=== PATIENT | male | born 2000 | race Caucasian/White ===

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

== ENCOUNTER 2019-01-05 17:50 | Emergency (ER) | payer BC ==
[2019-01-05 18:02] VITALS: BP 142/73
--- NOTE | 2019-01-05 18:57 | EKG REPORT ---
SEVERITY:- NORMAL ECG - SINUS RHYTHM : Confirmed by: Gwyn Mansfield MD 05-Jan-2019 18:57:12
--- NOTE | 2019-01-05 19:23 | ER Document Report ---
ED Medical Screen (RME) - General Chief Complaint: Palpitations Stated Complaint: PALPITATIONS Time Seen by Provider: 01/05/19 19:15 Primary Care Provider: LAY CABRERA MD [Primary Care Provider] - Follow up as needed Mode of Arrival: Ambulatory Information source: Patient Notes: Patient is a 18-year-old male with past medical history of asthma presenting to the emergency department with 24-hour history of chest pain. Patient reports pain is located just below his collarbone on the left side of his chest. He states it feels like a sharp stabbing pain. He denies any nausea, vomiting or diarrhea. He does report mild associated shortness of breath. He also reports feeling like his heart is fluttering. He denies the use of any caffeine or stimulants. Exam: Patient alert, oriented with no acute distress noted. Vital signs were reviewed and are within normal limits. Heart sounds S1-S2 present with no ectopy noted. Lung sounds are clear and equal bilaterally. I have greeted and performed a rapid initial assessment of this patient. A comprehensive ED assessment and evaluation of the patient, analysis of test results and completion of the medical decision making process will be conducted by additional ED providers. I have specifically instructed the patient or family members with the patient to immediately return to any nursing staff should anything change in the patient's condition or with their chief complaint. This medical record was dictated with voice recognizing software. There may be grammatical, syntax errors that are unintended. TRAVEL OUTSIDE OF THE [place] IN LAST 30 DAYS: No - Related Data Allergies/Adverse Reactions: No Known Allergies Allergy (Verified 01/05/19 17:51) Past Medical History - Social History Frequency of alcohol use: None Drug Abuse: Marijuana Pulmonary Medical History: Reports: Hx Asthma Renal/ Medical History: Denies: Hx Peritoneal Dialysis Musculoskeltal Medical History: Reports Hx Musculoskeletal Trauma Traumatic Medical History: Reports: Hx Fractures - left middle finger Past Surgical History: Reports: Hx Appendectomy - Immunizations Immunizations up to date: Yes Hx Diphtheria, Pertussis, Tetanus Vaccination: Yes Physical Exam - Vital signs Vitals: Temp Pulse Resp BP Pulse Ox 98.4 F 68 20 142/73 H 98 01/05/19 18:00 01/05/19 18:00 01/05/19 18:00 01/05/19 18:00 01/05/19 18:00 Course - Vital Signs Vital signs: Temp Pulse Resp BP Pulse Ox 98.4 F 68 20 142/73 H 98 01/05/19 18:00 01/05/19 18:00 01/05/19 18:00 01/05/19 18:00 01/05/19 18:00 Doctor's Discharge - Discharge Referrals: LAY CABRERA MD [Primary Care Provider] - Follow up as needed
--- NOTE | 2019-01-05 19:56 | RADIOLOGY REPORT (SQ) ---
EXAM DESCRIPTION: CHEST SINGLE VIEW COMPLETED DATE/TIME: 01/05/2019 7:42 pm REASON FOR STUDY: chest pain COMPARISON: 11/21/2017 EXAM PARAMETERS: NUMBER OF VIEWS: One view. TECHNIQUE: Single frontal radiographic view of the chest acquired. RADIATION DOSE: NA LIMITATIONS: None. FINDINGS: LUNGS AND PLEURA: No opacities, masses or pneumothorax. No pleural effusion. MEDIASTINUM AND HILAR STRUCTURES: No masses. Contour normal. HEART AND VASCULAR STRUCTURES: Heart normal in size. Normal vasculature. BONES: No acute findings. HARDWARE: None in the chest. OTHER: No other significant finding. IMPRESSION: NO ACUTE RADIOGRAPHIC FINDING IN THE CHEST. TECHNICAL DOCUMENTATION: JOB ID: [id number] [employer]- All Rights Reserved Reading location - IP/workstation name: [email or web address]
[2019-01-05 20:21] LABS: ABSOLUTE BASOPHILS # (AUTO) 0.1 10^3/uL (0.0-0.2); ABSOLUTE EOSINOPHILS # (AUTO) 0.2 10^3/uL (0.0-0.6); ABSOLUTE LYMPHOCYTES (AUTO) 2.5 10^3/uL (0.5-4.7); ABSOLUTE MONOCYTES (AUTO) 0.9 10^3/uL (0.1-1.4); ABSOLUTE NEUT (AUTO) 7.2 10^3/uL (1.7-8.2); BASOPHILS % (AUTO) 0.9 % (0-2); EOSINOPHILS % (AUTO) 2.1 % (0-6); HEMATOCRIT 49.7 % (37.9-51.0); HEMOGLOBIN 16.8 g/dL (13.5-17.0); MEAN CORPUSCULAR HGB CONC 33.8 g/dL (32.0-36.0); MEAN CORPUSCULAR VOLUME 92 fl (80-97); MONOCYTES % (AUTO) 8.1 % (3-13); PLATELET COUNT 248 10^3/uL (150-450); RED CELL DISTRIBUTION WIDTH 13.4 % (11.5-14.0); SEGMENTED NEUTROPHILS % (AUTO) 65.9 % (42-78); TOTAL CELLS COUNTED % (AUTO) 100 %; WHITE BLOOD COUNT 10.9 10^3/uL (4.0-10.5)
[2019-01-05 20:46] LABS: ALANINE AMINOTRANSFERASE 27 U/L (10-40); ALBUMIN 5.2 g/dL (3.7-5.6); ALKALINE PHOSPHATASE 58 U/L (65-260); ANION GAP 12 (5-19); ASPARTATE AMINO TRANSFERASE 26 U/L (10-45); BILIRUBIN,DIRECT 0.3 mg/dL (0.0-0.4); BILIRUBIN,TOTAL 0.6 mg/dL (0.2-1.3); BLOOD UREA NITROGEN 9 mg/dL (7-20); CALCIUM 10.2 mg/dL (8.4-10.2); CARBON DIOXIDE 26 mmol/L (22-30); CHLORIDE 104 mmol/L (98-107); GLUCOSE 103 mg/dL (75-110); POTASSIUM 4.4 mmol/L (3.6-5.0); TOTAL PROTEIN 8.4 g/dL (6.3-8.2)
== END 2019-01-06 02:12 | disposition left against medical advice (07) ==
LOC: ER 17:50
DX: R00.2 Palpitations (principal)
CPT/HCPCS: 36415; 71045; 80053; 84484; 85025; 93005; 93010; 99281

== ENCOUNTER 2019-02-03 21:20 | Emergency (ER) | payer BC ==
[2019-02-03 21:25] VITALS: BP 148/86
== END 2019-02-04 00:05 | disposition left against medical advice (07) ==
LOC: ER 21:20
DX: Z53.21 Procedure and treatment not carried out due to patient leaving prior to being seen by health care provider (principal)

== ENCOUNTER 2019-04-24 05:52 | Emergency (ER) | payer BC ==
--- NOTE | 2019-04-24 06:31 | ER Document Report ---
ED General <ALBER HOLT - Last Filed: 04/24/19 13:03> - General TRAVEL OUTSIDE OF THE [place] IN LAST 30 DAYS: No <EMILIO TONG - Last Filed: 04/24/19 13:40> - General Chief Complaint: Suicidal Ideation Stated Complaint: SUICIDAL IDEATION Time Seen by Provider: 04/24/19 06:31 Primary Care Provider: [facility] [Outside] - Follow up in 3-5 days [facility] [Outside] - Follow up as needed ANNMARIE HOWARD PA-C [Primary Care Provider] - Follow up as needed - Related Data Allergies/Adverse Reactions: No Known Allergies Allergy (Verified 01/05/19 17:51) Past Medical History - Social History Smoking Status: Current Every Day Smoker Drug Abuse: Marijuana Family History: Arthritis, CAD, Hyperlipidemia, Hypertension Patient has suicidal ideation: Yes Patient has homicidal ideation: No - Past Medical History Cardiac Medical History: Pulmonary Medical History: Reports: Hx Asthma Endocrine Medical History: Renal/ Medical History: Denies: Hx Peritoneal Dialysis Musculoskeletal Medical History: Reports Hx Musculoskeletal Trauma Traumatic Medical History: Reports: Hx Fractures - left middle finger Past Surgical History: Reports: Hx Appendectomy - Immunizations Immunizations up to date: Yes Hx Diphtheria, Pertussis, Tetanus Vaccination: Yes <EMILIO TONG - Last Filed: 04/24/19 13:40> Physical Exam - Vital signs Vitals: Temp Pulse Resp BP Pulse Ox 97.2 F 92 H 20 165/93 H 100 04/24/19 05:57 04/24/19 05:57 04/24/19 05:57 04/24/19 05:57 04/24/19 05:57 Course - Laboratory Result Diagrams: 04/24/19 07:25 04/24/19 07:25 <ALBER HOLT - Last Filed: 04/24/19 13:03> - Laboratory Result Diagrams: 04/24/19 07:25 04/24/19 07:25 <EMILIO TONG - Last Filed: 04/24/19 13:40> - Vital Signs Vital signs: Temp Pulse Resp BP Pulse Ox 97.2 F 92 H 20 165/93 H 100 04/24/19 05:57 04/24/19 05:57 04/24/19 05:57 04/24/19 05:57 04/24/19 05:57 - Laboratory Laboratory results interpreted by me: 04/24/19 04/24/19 04/24/19 06:36 07:25 07:25 Hgb 17.4 H Chloride 108 H Alkaline Phosphatase 50 L Urine Blood SMALL H Salicylates < 1.0 L Acetaminophen < 10 L Discharge <KACY HOLTIME - Last Filed: 04/24/19 13:03> <EMILIO TONG - Last Filed: 04/24/19 13:40> - Discharge Clinical Impression: Major depressive disorder Qualifiers: Major depression recurrence: unspecified whether recurrent Active/Remission status: remission status unspecified Qualified Code(s): F32.9 - Major depressive disorder, single episode, unspecified Clinical Impression: (Ruled Out): Bipolar II disorder Condition: Stable Disposition: HOME, SELF-CARE Additional Instructions: You have been evaluated both medical and behavioral teams and been deemed appropriate for discharge. You provided local resource list of area providers including mobile crisis contact information. Please contact your chosen outpatient mental health provider for therapeutic services such as CBT or DBT. DEPRESSION: Your evaluation reveals that you have mental depression. While symptoms may be vague, they often include disturbance of sleep, fatigue, loss of appetite, and general loss of interest in life. While depression may be a side effect of drugs, or a reaction to a major change in your life, many cases have no known cause. If depression is acute, and related to a major loss in your life, you can expect it to clear completely with time. If you have been depressed a long time, are prone to repeated bouts of depression or low mood, or have been thinking of suicide, get help. Depression can be treated with anti-depressant medication and counselling. Long-term depression will often take a few weeks to clear, even with appropriate medication. Follow-up care is important. SUICIDAL IDEATION: Suicidal ideation is a common medical term for thoughts about suicide, whi ch may be as detailed as a formulated plan, without the suicidal act itself. Although most people who undergo suicidal ideation do not commit suicide, some go on to make suicide attempts. The range of suicidal ideation varies greatly from fleeting to detailed planning, role playing, and unsuccessful attempts. While thoughts about suicide are common, most people do not carry out serious actions to commit suicide. Based upon your evaluation and discussion with you, we do not believe you are currently at risk to act upon your thoughts of suicide. You have agreed to return to the Emergency Department, at any time, if you feel inclined to act upon your suicidal thoughts. FOLLOW-UP CARE: If you have been referred to a physician for follow-up care, call the physicians office for an appointment as you were instructed or within the next two days. If you experience worsening or a significant change in your symptoms, notify the physician immediately or return to the Emergency Department at any time for re-evaluation. Referrals: ANNMARIE HOWARD PA-C [Primary Care Provider] - Follow up as needed [facility] [Outside] - Follow up as needed [facility] [Outside] - Follow up in 3-5 days
[2019-04-24 07:38] LABS: ABSOLUTE BASOPHILS # (AUTO) 0.1 10^3/uL (0.0-0.2); ABSOLUTE EOSINOPHILS # (AUTO) 0.5 10^3/uL (0.0-0.6); ABSOLUTE LYMPHOCYTES (AUTO) 2.3 10^3/uL (0.5-4.7); ABSOLUTE MONOCYTES (AUTO) 0.9 10^3/uL (0.1-1.4); ABSOLUTE NEUT (AUTO) 5.5 10^3/uL (1.7-8.2); BASOPHILS % (AUTO) 1.3 % (0-2); HEMATOCRIT 50.3 % (37.9-51.0); HEMOGLOBIN 17.4 g/dL (13.5-17.0); LYMPHOCYTES % (AUTO) 24.9 % (13-45); MEAN CORPUSCULAR HEMOGLOBIN 31.9 pg (27.0-33.4); MEAN CORPUSCULAR HGB CONC 34.6 g/dL (32.0-36.0); MEAN CORPUSCULAR VOLUME 92 fl (80-97); MONOCYTES % (AUTO) 9.9 % (3-13); PLATELET COUNT 234 10^3/uL (150-450); RED BLOOD COUNT 5.46 10^6/uL (4.35-5.55); RED CELL DISTRIBUTION WIDTH 12.9 % (11.5-14.0); SEGMENTED NEUTROPHILS % (AUTO) 58.9 % (42-78); TOTAL CELLS COUNTED % (AUTO) 100 %; WHITE BLOOD COUNT 9.3 10^3/uL (4.0-10.5)
[2019-04-24 07:52] LABS: APPEARANCE,URINE CLEAR; BILIRUBIN,URINE NEGATIVE (NEGATIVE); COLOR,URINE YELLOW; GLUCOSE, URINE NEGATIVE (NEGATIVE); KETONES,URINE NEGATIVE (NEGATIVE); LEUKOCYTE ESTERASE,URINE NEGATIVE (NEGATIVE); NITRITE,URINE NEGATIVE (NEGATIVE); PROTEIN,URINE NEGATIVE (NEGATIVE); URINE SPECIFIC GRAVITY 1.018; UROBILINOGEN,URINE NEGATIVE mg/dL (<2.0)
[2019-04-24 07:55] LABS: ADD MANUAL MICROSCOPIC YES
[2019-04-24 08:01] LABS: ALBUMIN 4.8 g/dL (3.7-5.6); ALKALINE PHOSPHATASE 50 U/L (65-260); ANION GAP 11 (5-19); ASPARTATE AMINO TRANSFERASE 24 U/L (10-45); BILIRUBIN,DIRECT 0.2 mg/dL (0.0-0.4); BILIRUBIN,TOTAL 0.4 mg/dL (0.2-1.3); BLOOD UREA NITROGEN 8 mg/dL (7-20); CALCIUM 9.5 mg/dL (8.4-10.2); CARBON DIOXIDE 25 mmol/L (22-30); CHLORIDE 108 mmol/L (98-107); GLUCOSE 95 mg/dL (75-110); POTASSIUM 4.1 mmol/L (3.6-5.0); TOTAL PROTEIN 7.6 g/dL (6.3-8.2)
[2019-04-24 08:06] LABS: ACETAMINOPHEN < 10 ug/mL (10-30); ALCOHOL < 10 mg/dL (NONE DETECTED); SALICYLATE < 1.0 mg/dL (2.0-20.0)
[2019-04-24 08:10] LABS: URINE AMPHETAMINES SCREEN NEGATIVE; URINE BARBITURATES SCREEN NEGATIVE; URINE BENZODIAZEPINES SCREEN NEGATIVE; URINE COCAINE SCREEN NEGATIVE; URINE MARIJUANA (THC) SCREEN UNCONFIRMED POSITIVE; URINE METHADONE SCREEN NEGATIVE; URINE PHENCYCLIDINE SCREEN NEGATIVE
--- NOTE | 2019-04-24 13:18 | PSYCHOLOGICAL NOTE ---
Psych Note - Psych Note Date seen by psych provider: 04/24/19 Time seen by psych provider: 07:35 Psych Note: Reason for Consult: Suicidal ideation Pt reports he was at home drinking a few beers with his brother and father when he suddenly "felt sad, went inside and started to cry." Pt reports SI at that time, attempted to take his entire bottle of prescription Vistaril, but changed his mind and spit them out. Pt denies hx of suicide attempts previously, stating "I've had thoughts of wanting to hurt myself or just having weird reactions to things. But tonfish is the first time I tried anything and went that far." Patient reports that he has had thoughts in the past of "what would happen" if he had harm himself however it always will "was abstract." Patient reports that last night was a normal night and can identify no triggers however he was drinking with family and after 2 beers reports going to his room and started crying. He states that he saw his pills sitting next to him on grabbed them and threw them in his mouth. He reports he immediately spit them out started crying more and came to [facility] for help. He states he texted his mother about what was happening and that he was coming to the hospital. He disclosed that he does have depressive thoughts with suicidal ideation that is typically passive in nature for months now that is on and off which he identifies is not seeming to be stress connected. He denies having any previous diagnosis however disclose that he does have a paternal grandmother who killed herself but does not know the details. Patient states that he hated school growing up however he went because the social aspect of it. He disclosed that he was "not disciplined and doing homework" however was a very good test taker and took many honors and AP classes. Patient reports that he did get into school and out of school suspensions frequently in high school. Patient states that he does smoke marijuana however rarely drinks. Patient reports that he does have significant issues with sleeping. Patient is alert and orientated to person, place, time and circumstance. Mood is euthymic with congruent affect. Patient denies current suicidal and homicidal ideation. Reports typically passive suicidal ideation (i.e. no plans means or intent) that comes and goes, with an experience event of suicidal gesture for the first time last night. Delusions are absent and behaviors congruent with an intact reality based presentation ie organized and linear thought process. Eye contact is well-maintained. Conversational speech is within normal rate, tone and prosody. Intellectual abilities appear to be within the average range. Attention and concentration are good. Insight, judgment, impulse control are fair. Major depressive disorder R/O bipolar 2 disorder No medication recommendations at this time Impression\\plan: Patient is cleared from acute psychiatric services. Patient presented to [facility] after impulsively putting prescription medications in his mouth and attempt to harm himself. Patient mainly spit them out and came to [facility] for assistance. Patient has family history suggesting probable major depressive disorder or bipolar. Patient reports he would like to attempt psychiatric treatment without medication management. Clinician provided psychoeducation on healthy lifestyle choices and successful therapeutic interventions for major depressive disorder and bipolar disorder. Patient's uncle joined at bedside per patient's request and agrees to be part of patient's plan of care i.e. no access to medications weapons and follow through with mental health recommendations. Patient was provided local resource list of area providers including mobile crisis contact information. Dr. Ga was consulted to care management of this patient; attending physician she does agreement with recommendations and disposition.
[2019-04-24 13:43] VITALS: BP 129/59
--- NOTE | 2019-04-24 21:38 | EKG REPORT ---
SEVERITY:- NORMAL ECG - SINUS RHYTHM : Confirmed by: Gwyn Mansfield MD 24-Apr-2019 21:37:00
== END 2019-04-24 13:50 | disposition home or self-care (01) ==
LOC: ER 05:52
DX: F32.9 Major depressive disorder, single episode, unspecified (principal); R45.851 Suicidal ideations; F17.200 Nicotine dependence, unspecified, uncomplicated
CPT/HCPCS: 36415; 80053; 80307; 81001; 85025; 93005; 93010; 99285

== ENCOUNTER 2020-01-02 14:11 | Emergency (ER) | payer BC ==
[2020-01-02 14:16] VITALS: BP 153/86
--- NOTE | 2020-01-02 14:36 | ER Document Report ---
ED Medical Screen (RME) - General Stated Complaint: FLANK PAIN Time Seen by Provider: 01/02/20 14:32 Primary Care Provider: ANNMARIE HOWARD PA-C [Primary Care Provider] - Follow up as needed Notes: HPI: 19-year-old male with 10 days of pain through the left lower back radiating around into the left flank region. States it hurts to move. Has had some diarrhea occasionally. No penis or testicular pain no darkening of his urine no blood in his urine. Has had occasional nausea no vomiting. PHYSICAL EXAMINATION: No direct tenderness in the CVA area left flank but mild tenderness to the left lower quadrant region on palpation I have greeted and performed a rapid initial assessment of this patient. A comprehensive ED assessment and evaluation of the patient, analysis of test results and completion of medical decision making process will be conducted by an additional ED providers. TRAVEL OUTSIDE OF THE [place] IN LAST 30 DAYS: No - Related Data Allergies/Adverse Reactions: No Known Allergies Allergy (Verified 01/02/20 14:31) Past Medical History - Past Medical History Cardiac Medical History: Pulmonary Medical History: Reports: Hx Asthma Endocrine Medical History: Renal/ Medical History: Denies: Hx Peritoneal Dialysis Musculoskeltal Medical History: Reports Hx Musculoskeletal Trauma Traumatic Medical History: Reports: Hx Fractures - left middle finger Past Surgical History: Reports: Hx Appendectomy - Immunizations Immunizations up to date: Yes Hx Diphtheria, Pertussis, Tetanus Vaccination: Yes Physical Exam - Vital signs Vitals: Pulse Resp BP Pulse Ox 75 18 153/86 H 99 01/02/20 14:14 01/02/20 14:14 01/02/20 14:14 01/02/20 14:14 Course - Vital Signs Vital signs: Temp Pulse Resp BP Pulse Ox 75 18 153/86 H 99 01/02/20 14:14 01/02/20 14:14 01/02/20 14:14 01/02/20 14:14 Doctor's Discharge - Discharge Referrals: ANNMARIE HOWARD PA-C [Primary Care Provider] - Follow up as needed
[2020-01-02 15:09] LABS: ABSOLUTE BASOPHILS # (AUTO) 0.1 10^3/uL (0.0-0.2); ABSOLUTE EOSINOPHILS # (AUTO) 0.5 10^3/uL (0.0-0.6); ABSOLUTE LYMPHOCYTES (AUTO) 2.3 10^3/uL (0.5-4.7); ABSOLUTE MONOCYTES (AUTO) 0.9 10^3/uL (0.1-1.4); ABSOLUTE NEUT (AUTO) 5.1 10^3/uL (1.7-8.2); BASOPHILS % (AUTO) 0.9 % (0-2); EOSINOPHILS % (AUTO) 5.4 % (0-6); HEMATOCRIT 51.8 % (37.9-51.0); HEMOGLOBIN 17.8 g/dL (13.5-17.0); LYMPHOCYTES % (AUTO) 26.4 % (13-45); MEAN CORPUSCULAR HGB CONC 34.4 g/dL (32.0-36.0); MEAN CORPUSCULAR VOLUME 93 fl (80-97); PLATELET COUNT 240 10^3/uL (150-450); RED BLOOD COUNT 5.57 10^6/uL (4.35-5.55); RED CELL DISTRIBUTION WIDTH 12.8 % (11.5-14.0); SEGMENTED NEUTROPHILS % (AUTO) 57.3 % (42-78); TOTAL CELLS COUNTED % (AUTO) 100 %; WHITE BLOOD COUNT 8.9 10^3/uL (4.0-10.5)
[2020-01-02 15:17] LABS: APPEARANCE,URINE SLIGHTLY-CLOUDY; BILIRUBIN,URINE NEGATIVE (NEGATIVE); COLOR,URINE YELLOW; GLUCOSE, URINE NEGATIVE (NEGATIVE); KETONES,URINE NEGATIVE (NEGATIVE); LEUKOCYTE ESTERASE,URINE NEGATIVE (NEGATIVE); NITRITE,URINE NEGATIVE (NEGATIVE); PROTEIN,URINE NEGATIVE (NEGATIVE); URINE SPECIFIC GRAVITY 1.012; UROBILINOGEN,URINE NEGATIVE mg/dL (<2.0)
--- NOTE | 2020-01-02 15:18 | RADIOLOGY REPORT (SQ) ---
EXAM DESCRIPTION: CT ABD/PELVIS WITH IV ONLY IMAGES COMPLETED DATE/TIME: 01/02/2020 3:01 pm REASON FOR STUDY: left flank pain COMPARISON: None. TECHNIQUE: CT scan of the abdomen and pelvis performed using helical scanning technique with dynamic intravenous contrast injection. No oral contrast. Images reviewed with lung, soft tissue, and bone windows. Reconstructed coronal and sagittal MPR images reviewed. Delayed images for evaluation of the urinary system also acquired. All images stored on PACS. All CT scanners at this facility use dose modulation, iterative reconstruction, and/or weight based d osing when appropriate to reduce radiation dose to as low as reasonably achievable (ALARA). [facility]: Dose Right [facility]: CareDose [facility]: Dose Right [facility]: Teradose 4D [facility]: setObject CONTRAST TYPE AND DOSE: contrast/concentration: Isovue 350.00 mmol/ml; Total Contrast Delivered: 100 .0 ml; Total Saline Delivered: 72.0 ml RENAL FUNCTION: None required. The patient is less than 50 years old. RADIATION DOSE: CT Rad equipment meets quality standard of care and radiation dose reduction techniq ues were employed. CTDIvol: 13.4 - 17.8 mGy. DLP: 1957 mGy-cm.. LIMITATIONS: None. FINDINGS: LOWER CHEST: No significant findings. No nodules or infiltrates. LIVER: Normal size. No masses. No dilated ducts. Hepatic and portal veins are patent. SPLEEN: Normal size. No focal lesions. PANCREAS: No masses. No significant calcifications. No adjacent inflammation or peripancreatic fluid collections. Pancreatic duct not dilated. GALLBLADDER: No identified stones by CT criteria. No inflammatory changes to suggest cholecystitis. ADRENAL GLANDS: No significant masses or asymmetry. RIGHT KIDNEY AND URETER: No solid masses. No significant calcifications. No hydronephrosis or hyd roureter. LEFT KIDNEY AND URETER: No solid masses. No significant calcifications. No hydronephrosis or hydr oureter. AORTA AND VESSELS: No aneurysm. No dissection. Renal arteries, SMA, celiac without stenosis. RETROPERITONEUM: No retroperitoneal adenopathy, hemorrhage or masses. BOWEL AND PERITONEAL CAVITY: No masses or inflammatory changes. No free fluid or peritoneal masses. APPENDIX: Prior appendectomy. PELVIS: The prostate gland measures 4.4 cm in diameter. No free fluid. Normal bladder. ABDOMINAL WALL: No masses. No hernias. BONES: No significant or acute findings. OTHER: No other significant finding. IMPRESSION: 1. NO ACUTE FINDING IN THE ABDOMEN OR PELVIS. 2. Prior appendectomy. TECHNICAL DOCUMENTATION: JOB ID: [id number] Quality ID # [id number]: Final reports with documentation of one or more dose reduction techniques (e.g., Au tomated exposure control, adjustment of the mA and/or kV according to patient size, use of iterative reconstruction technique) 2010 [employer]- All Rights Reserved Reading location - IP/workstation name: [email or web address]
[2020-01-02 15:23] LABS: ALBUMIN 5.1 g/dL (3.5-5.0); ALKALINE PHOSPHATASE 50 U/L (38-126); ANION GAP 8 (5-19); ASPARTATE AMINO TRANSFERASE 23 U/L (17-59); BILIRUBIN,TOTAL 0.6 mg/dL (0.2-1.3); BLOOD UREA NITROGEN 8 mg/dL (7-20); CALCIUM 10.5 mg/dL (8.4-10.2); CARBON DIOXIDE 27 mmol/L (22-30); CHLORIDE 105 mmol/L (98-107); GLUCOSE 98 mg/dL (75-110); TOTAL PROTEIN 8.2 g/dL (6.3-8.2)
--- NOTE | 2020-01-02 15:48 | ER Document Report ---
HPI - HPI Time Seen by Provider: 01/02/20 14:32 Pain Level: 3 Notes: CHIEF COMPLAINT:left flank pain HPI:19-year-old male with 10 days of pain through the left lower back radiating around into the left flank region. States it hurts to move. Has had some diarrhea occasionally. No penis or testicular pain no darkening of his urine no blood in his urine. Has had occasional nausea no vomiting. ROS: See HPI - all other systems were reviewed and are otherwise negative Constitutional: no fever Eyes: no drainage, no blurred vision ENT: no runny nose, no sore throat Cardiovascular: no chest pain Resp: no SOB, no cough GI: no vomiting, + diarrhea, no abdominal pain : no dysuria Integumentary: no rash Allergy: no hives Musculoskeletal: no extremity pain or swelling Neurological: no numbness/tingling, no weakness MEDICATIONS: I agree with the patient medications as charted by the RN. ALLERGIES: I agree with the allergies as charted by the RN. PAST MEDICAL HISTORY/PAST SURGICAL HISTORY: Reviewed and agree as charted by RN. SOCIAL HISTORY: Reviewed and agree as charted by RN. FAMILY HISTORY: No significant familial comorbid conditions directly related to patient complaint EXAM: Reviewed vital signs as charted by RN. CONSTITUTIONAL: Alert and oriented and responds appropriately to questions. Well-appearing; well-nourished HEAD: Normocephalic; atraumatic EYES: PERRL; Conjunctivae clear, sclerae non-icteric ENT: normal nose; no rhinorrhea; moist mucous membranes; pharynx without lesions noted, no uvula edema or deviation, no tonsillar hypertrophy, phonation normal NECK: Supple without meningismus; non-tender; no cervical lymphadenopathy, no masses CARD: RRR; no murmurs, no clicks, no rubs, no gallops; symmetric distal pulses RESP: Normal chest excursion without splinting or tachypnea; breath sounds clear and equal bilaterally; no wheezes, no rhonchi, no rales, pulse oximetry ABD/GI: Normal bowel sounds; non-distended; soft, mild tenderness to the left lower quadrant left lateral flank region on palpation, no rebound, no guarding; no palpable organomegaly or masses. BACK: The back appears normal and is non-tender to palpation, there is no CVA tenderness. EXT: Normal ROM in all joints; non-tender to palpation; no cyanosis, no effusions, no edema SKIN: Normal color for age and race; warm; dry; good turgor; no acute lesions noted NEURO: Moves all extremities equally; Motor and sensory function intact PSYCH: The patient's mood and manner are appropriate. Grooming and personal hygiene are appropriate. MDM: 19-year-old male presenting with left flank and back pain. Patient's work- up does not show an acute definitive reason for his pain. His urine and lab work do not show acute findings. His CT does not show acute findings this may be muscular in nature. Will give Toradol in the emergency department plan to ke ep patient on anti-inflammatories and plan for close follow-up - REPRODUCTIVE Reproductive: DENIES: : Past Medical History - Social History Smoking Status: Current Every Day Smoker Chew tobacco use (# tins/day): No Frequency of alcohol use: None Drug Abuse: Marijuana Family History: Arthritis, CAD, Hyperlipidemia, Hypertension Patient has homicidal ideation: No - Past Medical History Cardiac Medical History: Pulmonary Medical History: Reports: Hx Asthma Endocrine Medical History: Renal/ Medical History: Denies: Hx Peritoneal Dialysis Musculoskeletal Medical History: Reports Hx Musculoskeletal Trauma Traumatic Medical History: Reports: Hx Fractures - left middle finger Past Surgical History: Reports: Hx Appendectomy - Immunizations Immunizations up to date: Yes Hx Diphtheria, Pertussis, Tetanus Vaccination: Yes Vertical Provider Document - INFECTION CONTROL TRAVEL OUTSIDE OF THE [place] IN LAST 30 DAYS: No Course - Vital Signs Vital signs: Temp Pulse Resp BP Pulse Ox 75 18 153/86 H 99 01/02/20 14:14 01/02/20 14:14 01/02/20 14:14 01/02/20 14:14 - Laboratory Result Diagrams: 01/02/20 14:50 01/02/20 14:50 Laboratory results interpreted by me: 01/02/20 01/02/20 14:50 14:50 RBC 5.57 H Hgb 17.8 H Hct 51.8 H Calcium 10.5 H Albumin 5.1 H Discharge - Discharge Clinical Impression: Acute left flank pain Condition: Stable Disposition: HOME, SELF-CARE Additional Instructions: Take the Voltaren for pain over the next 3 to 5 days. Warm heat to the lower back to help with discomfort. Follow-up with your primary care provider for reevaluation of symptoms call for appointment. Your lab work and imaging studies today did not show a definitive reason for your discomfort Prescriptions: Diclofenac Sodium [Voltaren 50 Mg Tablet.] 50 mg PO BID #20 tablet. Referrals: ANNMARIE HOWARD PA-C [Primary Care Provider] - Follow up as needed
[2020-01-02] MEDS ORDERED: KETOROLAC TROMETHAMINE 60 MG/2 ML SDV IM ONE (15:51)
[2020-01-02] MEDS ORDERED: KETOROLAC TROMETHAMINE INJ/PF 30 MG/1 ML SDV IV ONE (15:53)
== END 2020-01-02 15:55 | disposition home or self-care (01) ==
LOC: ER 14:11
DX: R10.9 Unspecified abdominal pain (principal); M54.5 Low back pain; J45.909 Unspecified asthma, uncomplicated; R10.814 Left lower quadrant abdominal tenderness; R10.819 Abdominal tenderness, unspecified site; F17.200 Nicotine dependence, unspecified, uncomplicated; F12.10 Cannabis abuse, uncomplicated; Z90.49 Acquired absence of other specified parts of digestive tract
CPT/HCPCS: 99284; 96372; 36415; 85025; 80053; 81001; 74177; J1885